=== PATIENT | female | born 1965 | race Caucasian/White ===

== ENCOUNTER 2017-01-27 15:29 | Emergency (ER) | payer OTHER ==
[2017-01-27 15:36] VITALS: BP 132/86; PULSE 105; RESP 18; TEMP 98.8
[2017-01-27] MEDS ORDERED: DIPH,PERTUS(ACELL)TETVAC-LF 0.5 ML VIAL IM ONE (15:54)
--- NOTE | 2017-01-27 16:03 | XR ---
EXAMINATION TYPE: XR knee 4V RT DATE OF EXAM: 01/27/2017 COMPARISON: NONE HISTORY: Pain TECHNIQUE: 4 views FINDINGS: There is mild spurring of the femoral and tibial condyles. I see no fracture nor dislocatio n. There is no sign of joint effusion. There is mild spurring on the patella. IMPRESSION: Mild osteoarthritis. No fracture.
--- NOTE | 2017-01-27 16:05 | XR ---
EXAMINATION TYPE: XR ankle complete LT DATE OF EXAM: 01/27/2017 COMPARISON: NONE HISTORY: Pain TECHNIQUE: 3 views FINDINGS: There are moderate plantar and Achilles calcaneal spurs. Ankle mortise is anatomic. I see n o fracture. IMPRESSION: Calcaneal spurring. No fracture seen.
--- NOTE | 2017-01-27 16:12 | ED ---
Fall HPI - General Chief Complaint: Fall Stated Complaint: Fall Time Seen by Provider: 01/27/17 15:40 Source: patient Mode of arrival: wheelchair - History of Present Illness Initial Comments: 51-year-old female complains of right knee and left ankle pain status post falling off a slight uneven curb and [place]. Patient states she stepped on uneven road that was under construction. Patient states she fell directly on her right knee and caused an abrasion. Patient states she was able to walk over to the fire department where they cleaned her up and finish her up. Patient states on the way home she was driving and felt more pain in her left ankle. Patient still able to ambulate but things are getting more painful and stiff. Patient states her she is not aware of when her last tetanus was. Patient states he did not put any ointment on her abrasions. Patient denies any previous injury to the knee or ankle on the side no loss of consciousness no head injury no neck or back pain. MD Complaint: fall Fall From: standing When Fall Occurred: 1-3 hours WELD FITTER Fall Witnessed: no Place Fall Occurred: street, other Loss of Consciousness: none Prolonged Down Time?: no Symptoms Prior to Fall: none Location - Extremities: Left: Ankle, Right: Knee - Related Data Home Medications Medication Instructions Recorded Confirmed Dextroamphetamine/Amphetamine 30 mg PO DAILY 01/27/17 01/27/17 [Adderall] Lisinopril-Hctz 20-12.5 mg 1 tab PO DAILY 01/27/17 01/27/17 [Zestoretic 20-12.5] Loratadine [Claritin] 10 mg PO DAILY 01/27/17 01/27/17 Montelukast Sodium [Singulair] 10 mg PO HS 01/27/17 01/27/17 [place]-3 Fatty Acids/Fish Oil [Fish 1 each PO 01/27/17 Oil 1,000 mg Capsule] PARoxetine HCL [Paxil] 40 mg PO DAILY 01/27/17 01/27/17 Previous Rx's Medication Instructions Recorded Acetaminophen with Codeine 1 each PO Q4H PRN #20 tab 01/27/17 [Tylenol w/codeine #3] Allergies Allergy/AdvReac Type Severity Reaction Status Date / Time No Known Allergies Allergy Verified 01/27/17 15:36 Review of Systems ROS Statement: Those systems with pertinent positive or pertinent negative responses have been documented in the HPI. ROS Other: All systems not noted in ROS Statement are negative. Gastrointestinal: Denies: abdominal pain Musculoskeletal: Reports: other (right knee and left ankle). Denies: back pain Neurological: Denies: weakness Past Medical History Past Medical History: No Reported History History of Any Multi-Drug Resistant Organisms: None Reported Past Surgical History: Cholecystectomy Additional Past Surgical History / Comment(s): lap band Past Psychological History: Anxiety, Depression Smoking Status: Never smoker Past Alcohol Use History: None Reported Past Drug Use History: None Reported General Exam Limitations: no limitations General appearance: alert, in no apparent distress Left Hip exam: Present: normal inspection, full ROM. Absent: tenderness Upper Leg exam: Present: normal inspection, full ROM. Absent: tenderness Knee exam: Present: normal inspection, full ROM, ecchymosis Lower Leg exam: Present: normal inspection, full ROM. Absent: tenderness Ankle exam: Present: normal inspection, full ROM, tenderness (medial and lateral ) Foot/Toe exam: Present: normal inspection, full ROM. Absent: tenderness, swelling Gait: not tested/not observed Right Hip exam: Present: normal inspection, full ROM. Absent: tenderness, swelling Upper Leg exam: Present: normal inspection, full ROM. Absent: tenderness Knee exam: Present: full ROM, tenderness (ant knee), abrasion, ecchymosis Lower Leg exam: Present: normal inspection, full ROM. Absent: tenderness, swelling Ankle exam: Present: normal inspection, full ROM. Absent: tenderness Foot/Toe exam: Present: normal inspection, full ROM. Absent: tenderness, swelling Neurological exam: Present: alert, oriented X3, CN II-XII intact Psychiatric exam: Present: normal affect, normal mood Skin exam: Present: warm, dry, intact, normal color, abrasion (right knee). Absent: rash Course Vital Signs 01/27/17 15:33 Temperature 98.8 F Pulse Rate 105 H Respiratory 18 Rate Blood Pressure 132/86 O2 Sat by Pulse 98 Oximetry Medical Decision Making - Medical Decision Making Reviewed x-ray negative for any acute changes. Patient aware. Patient was prepped and draped appropriately Betadine normal saline was used to clean the right knee abrasions. Bacitracin and dressing applied patient tolerated well. Patient unaware of x-ray results. Patient to continue with rest ice and elevation and compression. Patient states she had has ibuprofen at home. Disposition Clinical Impression: Abrasion, Contusion, Ankle sprain Disposition: HOME SELF-CARE Condition: Good Prescriptions: Acetaminophen with Codeine [Tylenol w/codeine #3] 1 each PO Q4H PRN #20 tab PRN Reason: Pain Referrals: Edwin Bernardo MD [Primary Care Provider] - 1-2 days Time of Disposition: 16:14
== END 2017-01-27 16:18 | disposition home or self-care (01) ==
LOC: EC 15:29
DX: S93.402A Sprain of unspecified ligament of left ankle, initial encounter (principal); S80.01XA Contusion of right knee, initial encounter; F32.9 Major depressive disorder, single episode, unspecified; F41.9 Anxiety disorder, unspecified; Z79.899 Other long term (current) drug therapy; Z23 Encounter for immunization; W01.0XXA Fall on same level from slipping, tripping and stumbling without subsequent striking against object, initial encounter; Y92.410 Unspecified street and highway as the place of occurrence of the external cause
CPT/HCPCS: 90471; 90715; 99283

== ENCOUNTER → 2019-02-13 | Outpatient (CLI) | payer OTHER ==
--- NOTE | 2019-02-14 09:53 | MM ---
Reason for exam: screening (asymptomatic). Last mammogram was performed 2 years and 6 months ago. History: Patient is postmenopausal. Took hormonal contraceptives for 10 years beginning at age 36. Took progesterone for 1 year beginning at age 39. Physical Findings: A clinical breast exam by your physician is recommended on an annual basis and results should be correlated with mammographic findings. MG Screening Mammo w CAD Bilateral CC and MLO view(s) were taken. Prior study comparison: August 02, 2016, bilateral MG screening mammo w CAD. May 07, 2013, bilateral digital screening mammo w/CAD. The breast tissue is heterogeneously dense. This may lower the sensitivity of mammography. There is no discrete abnormality. ASSESSMENT: Negative, BI-RAD 1 RECOMMENDATION: Routine screening mammogram of both breasts in 1 year.
== END | disposition home or self-care (01) ==
LOC: RADMAMWWP 07:40
PROVIDERS: ATTEND Family Medicine
DX: Z12.31 Encounter for screening mammogram for malignant neoplasm of breast (principal)
CPT/HCPCS: 77067

== ENCOUNTER → 2019-07-08 | Outpatient (CLI) | payer OTHER ==
--- NOTE | 2019-07-08 14:09 | XR ---
EXAMINATION TYPE: XR ankle complete LT DATE OF EXAM: 07/08/2019 COMPARISON: NONE HISTORY: Pain FINDINGS: Three views of the ankle demonstrate the ankle mortise to be intact and symmetric. The joint spaces are preserved. The osseous structures are intact. Soft tissue edema noted. Calcaneal spurs seen. IMPRESSION: 1. No definite acute fracture or dislocation, if symptoms persist follow-up study in 7 to 10 days wou ld be suggested.
--- NOTE | 2019-07-08 14:11 | XR ---
EXAMINATION TYPE: XR foot complete LT DATE OF EXAM: 07/08/2019 COMPARISON: NONE HISTORY: Pain TECHNIQUE: Three views are submitted. FINDINGS: The osseous structures are intact. There is no acute fracture or dislocation. Arthropathy of the f irst MTP joint. Calcaneal spurs noted. IMPRESSION: 1. Calcaneal spurs. 2. First MTP joint arthropathy
== END | disposition home or self-care (01) ==
LOC: RADXRMAIN 11:23
PROVIDERS: ATTEND Physician Assistant
DX: M19.072 Primary osteoarthritis, left ankle and foot (principal)

== ENCOUNTER → 2020-05-03 | Outpatient (CLI) | payer OTHER ==
--- NOTE | 2020-05-04 14:00 | MM ---
Reason for exam: screening (asymptomatic). Last mammogram was performed 1 year and 3 months ago. History: Patient is postmenopausal. Took hormonal contraceptives for 10 years beginning at age 36. Took progesterone for 1 year beginning at age 39. Physical Findings: A clinical breast exam by your physician is recommended on an annual basis and results should be correlated with mammographic findings. MG Screening Mammo w CAD Bilateral CC and MLO view(s) were taken. Prior study comparison: February 13, 2019, bilateral MG screening mammo w CAD. August 02, 2016, bilateral MG screening mammo w CAD. There are scattered fibroglandular densities. No significant changes when compared with prior studies. ASSESSMENT: Benign, BI-RAD 2 RECOMMENDATION: Routine screening mammogram of both breasts in 1 year.
== END | disposition home or self-care (01) ==
LOC: RADMAMWWP 12:59
PROVIDERS: ATTEND Family Medicine
DX: Z12.31 Encounter for screening mammogram for malignant neoplasm of breast (principal)
CPT/HCPCS: 77067